=== PATIENT | male | born 2000 | race Caucasian/White ===

== ENCOUNTER 2019-09-02 04:57 | Emergency (ER) | payer OTHER ==
[~2019-09-02] VITALS: Ht 182.9 cm; Wt 96.6 kg
[2019-09-02 05:22] LABS: ABSOLUTE BASOPHILS 0.1 thou/uL (0.0-0.2); ABSOLUTE EOSINOPHILS 0.1 thou/uL (0.0-0.7); ABSOLUTE LYMPHOCYTES 3.3 thou/uL (0.8-5.3); ABSOLUTE MONOCYTES 0.5 thou/uL (0.0-1.2); ABSOLUTE NEUTROPHILS 4.2 thou/uL (1.6-8.1); BASOPHILS 0.8 %; HEMATOCRIT 43.8 % (42.0-52.0); HEMOGLOBIN 15.3 gm/dL (14.0-18.0); LYMPHOCYTES 40.5 %; MCH 29.5 pg (26.0-34.0); MCHC 34.9 g/dL (28.0-37.0); MCV 84.7 fL (80.0-100.0); MONOCYTES 6.2 %; MPV 7.2 fl. (7.2-11.1); NUCLEATED RBCS 0 /100WBC; PLATELET COUNT* 381 thou/uL (150-400); POLYS 51.5 %; RBC 5.17 mil/uL (4.50-6.00); RDW-CV 13.4 % (10.5-14.5); WBC 8.2 thou/uL (4.0-11.0)
[2019-09-02 05:29] LABS: CALCIUM 8.7 mg/dL (8.5-10.1); CREATININE 1.3 mg/dL (0.6-1.3); POTASSIUM 3.9 mmol/L (3.5-5.1)
[2019-09-02 05:33] LABS: TOTAL BILIRUBIN 0.3 mg/dL (<0.1-1.0); TOTAL PROTEIN 7.6 g/dL (6.4-8.2)
[2019-09-02 06:26] VITALS: BP 122/64
--- NOTE | 2019-09-02 13:17 | EKG ---
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
== END 2019-09-02 06:26 | disposition home or self-care (01) ==
LOC: M.ERS 04:57
PROVIDERS: Family Medicine
DX: R56.9 Unspecified convulsions (principal)

== ENCOUNTER 2020-08-13 07:09 | Emergency (ER) | payer OTHER ==
[~2020-08-13] VITALS: Ht 182.9 cm; Wt 97.5 kg
[2020-08-13 07:28] LABS: ABSOLUTE BASOPHILS 0.1 thou/uL (0.0-0.2); ABSOLUTE EOSINOPHILS 0.2 thou/uL (0.0-0.7); ABSOLUTE LYMPHOCYTES 6.7 thou/uL (0.8-5.3); ABSOLUTE MONOCYTES 1.3 thou/uL (0.0-1.2); ABSOLUTE NEUTROPHILS 6.7 thou/uL (1.6-8.1); BASOPHILS 0.6 %; EOSINOPHILS 1.5 %; HEMATOCRIT 50.7 % (42.0-52.0); HEMOGLOBIN 16.3 gm/dL (14.0-18.0); LYMPHOCYTES 44.6 %; MCH 28.4 pg (26.0-34.0); MCHC 32.3 g/dL (28.0-37.0); MCV 88.2 fL (80.0-100.0); MONOCYTES 8.9 %; MPV 7.9 fl. (7.2-11.1); NUCLEATED RBCS 0 /100WBC; PLATELET COUNT* 519 thou/uL (150-400); POLYS 44.4 %; RBC 5.75 mil/uL (4.50-6.00)
[2020-08-13 07:59] LABS: CALCIUM 9.4 mg/dL (8.5-10.1); CREATININE 1.4 mg/dL (0.6-1.3); POTASSIUM 4.1 mmol/L (3.5-5.1)
[2020-08-13 07:59] LABS: URINE BILIRUBIN NEGATIVE (Negative); URINE BLOOD 1+ (Negative); URINE CLARITY CLEAR; URINE COLOR YELLOW; URINE GLUCOSE-RANDOM NEGATIVE (Negative); URINE KETONES NEGATIVE (Negative); URINE LEUKOCYTES NEGATIVE (Negative); URINE NITRITE NEGATIVE (Negative); URINE PROTEIN 2+ (Negative); URINE SPECIFIC GRAVITY >= 1.030 (1.005-1.030); URINE UROBILINOGEN 0.2 E.U./dl (0.2-1.0)
[2020-08-13 08:04] LABS: ALBUMIN 4.5 g/dL (3.4-5.0); TOTAL BILIRUBIN 0.5 mg/dL (<0.1-1.0); TOTAL PROTEIN 8.7 g/dL (6.4-8.2)
[2020-08-13 08:06] LABS: AMP/METHAMP Negative (Negative); BARBITURATES Negative (Negative); BENZODIAZEPINES Negative (Negative); COCAINE Negative (Negative); METHADONE Negative (Negative); OPIATES Negative (Negative); PCP Negative (Negative); THC Negative (Negative)
[2020-08-13 08:07] LABS: BACTERIA 1-9 Few /HPF (None Seen); CASTS None Seen /LPF (None Seen); MUCUS None Seen strn/LPF (None Seen); SQUAMOUS 0-3 Few /LPF (0-3); URINE RBC 0-2 Rare /HPF (0-2); URINE WBC None Seen /HPF (0-5)
[2020-08-13 08:08] LABS: CRYSTALS None Seen /LPF (None Seen)
[2020-08-13] MEDS ORDERED: KEPPRA XR500 MG PO (09:25)
[2020-08-13 10:37] VITALS: BP 111/60
--- NOTE | 2020-08-13 11:27 | EKG ---
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2000 Requested By: Sanjeev Caban Order Number: [id number] MD: Sukumar Agudelo Measurements Intervals [place] Rate: 122 P: 62 MN: 148 QRS: 76 QRSD: 103 T: -44 QT: 332 QTc: 473 Interpretive Statements Sinus tachycardia Borderline repolarization abnormality Borderline prolonged QT interval Baseline wander in lead(s) V2,V4 Compared to ECG 09/02/2019 05:00:40 Sinus rhythm no longer present Electronically Signed On 08-13-2020 11:27:15 CDT by Sukumar Agudelo [email or web address] <ELECTRONICALLY SIGNED> By: Sukumar Agudelo MD, [facility] 08/13/20 1127 2 2 Sukumar Agudelo MD, [facility] /EPI
== END 2020-08-13 10:39 | disposition home or self-care (01) ==
LOC: M.ERS 07:09
PROVIDERS: Emergency Medicine
DX: R56.9 Unspecified convulsions (principal)

== ENCOUNTER 2020-09-15 16:12 | Emergency (ER) | payer OTHER ==
[~2020-09-15] VITALS: Ht 180.3 cm; Wt 93.0 kg
[~2020-09-15 16:12] MED LIST: KEPPRA XR500 MG PO
[2020-09-15 17:19] VITALS: BP 101/44
== END 2020-09-15 17:20 | disposition home or self-care (01) ==
LOC: M.ERS 16:12
DX: G40.909 Epilepsy, unspecified, not intractable, without status epilepticus (principal)

== ENCOUNTER 2020-10-30 05:47 | Emergency (ER) | payer OTHER ==
[~2020-10-30] VITALS: Ht 182.9 cm; Wt 89.8 kg
[2020-10-30 07:47] LABS: MPV 7.7 fl. (7.2-11.1)
[2020-10-30 07:48] LABS: ABSOLUTE BASOPHILS 0.1 thou/uL (0.0-0.2); ABSOLUTE MONOCYTES 0.8 thou/uL (0.0-1.2); BASOPHILS 1.1 %; EOSINOPHILS 0.3 %; HEMATOCRIT 46.4 % (42.0-52.0); HEMOGLOBIN 15.9 gm/dL (14.0-18.0); MCHC 34.3 g/dL (28.0-37.0); MCV 87.5 fL (80.0-100.0); MONOCYTES 8.9 %; NUCLEATED RBCS 0 /100WBC; PLATELET COUNT* 373 thou/uL (150-400); POLYS 67.7 %; RDW-CV 13.2 % (10.5-14.5); WBC 8.9 thou/uL (4.0-11.0)
[2020-10-30 08:01] LABS: CALCIUM 8.9 mg/dL (8.5-10.1); CREATININE 1.3 mg/dL (0.6-1.3); POTASSIUM 3.7 mmol/L (3.5-5.1)
[2020-10-30 08:06] LABS: ALBUMIN 4.6 g/dL (3.4-5.0); TOTAL BILIRUBIN 0.3 mg/dL (<0.1-1.0); TOTAL PROTEIN 8.1 g/dL (6.4-8.2)
[2020-10-30 08:15] VITALS: BP 116/44
--- NOTE | 2020-10-30 09:51 | EKG ---
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2000 Requested By: Sherie Barnett Order Number: [id number] Dhara MD: Sukumar Agudelo Measurements Intervals [place] Rate: 101 P: 46 [place]: 155 QRS: 56 QRSD: 103 T: 7 QT: 357 QTc: 463 Interpretive Statements Sinus tachycardia Compared to ECG 08/13/2020 07:13:25 No significant changes Electronically Signed On 10-30-2020 9:51:01 CDT by Sukumar Agudelo [email or web address] <ELECTRONICALLY SIGNED> By: Sukumar Agudelo MD, [facility] 10/30/20 0951 0550 0550 Sukumar Agudelo MD, [facility] /EPI
--- NOTE | 2020-10-30 09:51 | EKG ---
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
== END 2020-10-30 08:16 | disposition home or self-care (01) ==
LOC: M.ERS 05:47
PROVIDERS: Family Medicine
DX: G40.909 Epilepsy, unspecified, not intractable, without status epilepticus (principal); Z79.899 Other long term (current) drug therapy